=== PATIENT | female | born 1990 | race Caucasian/White ===

== ENCOUNTER 2021-12-01 03:42 | Emergency (ER) | payer MEDICAID, SELFPAY ==
[2021-12-01 03:51] VITALS: BP 158/102; PULSE 73; RESP 16; TEMP 36.6; O2SAT 99; BMI 51.7
--- NOTE | 2021-12-01 04:17 | USR_ITS ---
PROCEDURE INFORMATION: Exam: US Abdomen, Limited; Right Upper Quadrant Exam date and time: 12/01/2021 5:13 AM Age: 31 years old Clinical indication: Abdominal pain; Epigastric; Patient HX: PT was scheduled to have gb removed last December but the pain stopped and she felt better; Additional info: Ruq pain TECHNIQUE: Imaging protocol: Real time ultrasound of the abdomen with image documentation. Limited exam focused on the right upper quadrant. COMPARISON: US OB limited [id number] 08/15/2017 7:00 PM FINDINGS: Liver: Hepatomegaly, fatty liver. No liver masses are seen. Gallbladder: Cholelithiasis. Gallbladder wall is thickened at 4 mm. There is no pericholecystic fluid. Biliary ducts: Normal. No stones. No dilation. Pancreas: Visualized pancreas is unremarkable. Right kidney: There is extrarenal right renal pelvis. Otherwise the right kidney is unremarkable. Aorta: Normal. Inferior vena cava: Normal. US/US gall bladder [id number] IMPRESSION: 1. Cholelithiasis. Thickening of the gallbladder wall may indicate cholecystitis. 2. Hepatomegaly, fatty liver.
--- NOTE | 2021-12-01 04:17 | W.ED.ABDPA2 ---
HPI - Abdominal Pain General: Chief Complaint: Abdominal Pain Stated Complaint: Gall Bladder Pain Time Seen by Provider: 12/01/21 04:07 Source: patient History of Present Illness: 31-year-old female with a history of gallstones. She states that she had chili last night, and has been having epigastric and right upper quadrant pain since around 11 PM. Nausea with no vomiting. No fever. No history of belly surgery. No diarrhea. Pain radiates somewhat into her back. MD elicited complaint: abdominal pain Pertinent past history: none Onset (ago): hour(s) Pain Consistency: constant Location: Epigastric and RUQ Severity: moderate Quality: cramping and stabbing Radiation: none Migration to: no migration Exacerbating factors: eating (Possibly) Relieving factors: nothing Associated Symptoms: Reports nausea; Denies constipation, GI cramping, diarrhea, dysuria, fever(s), hematochezia and vomiting Related Data: Date of Last Menstrual Period: 11/30/21 Review of Systems Const: Denies: fever(s) Eyes: Denies: change in vision Card: Denies: chest pain or palpitations Resp: Denies: dyspnea, productive cough, non-productive cough or wheezing GI: Reports: nausea; Denies: vomiting, diarrhea, constipation, GI cramping or hematochezia : Denies: dysuria Skin/Breast: Denies: rash Neuro: Denies: headache(s), weakness in extremities, dizziness or confusion PFSH ED PFSH: Family History Denies family history of Diabetes CAD (coronary artery disease) Dementia Chronic kidney disease (CKD) Cancer Stroke Social History Smoking and tobacco status: never smoked Alcohol intake: current Alcohol intake frequency: holidays/special occasions only Lives independently: Yes Household members: children Female Reproductive History: Date of last menstrual period: 11/30/21 Physical Exam Const: COMMON NORMALS: no acute distress GENERAL APPEARANCE: cooperative; not ill appearing and not frail appearing HENMT: COMMON NORMALS: normocephalic, atraumatic, TM's normal bilaterally and Normal external nose present HEAD & SCALP: normocephalic and atraumatic FACE & SINUS: normal facial exam and face symmetric NOSE: Normal external nose present TYMPANIC MEMBRANE: TM's normal bilaterally MOUTH: Normal oral and palatal mucosa present Eye: COMMON NORMALS: Equal, round and reactive pupils present and EOMs intact bilaterally PUPIL: Yes Equal, round and reactive pupils present Neck/C-Spine: GENERAL: Yes trachea midline Chest: CHEST: Yes Symmetrical chest wall rise Resp: COMMON NORMALS: normal respiratory effort, No retractions, No use of accessory muscles and clear to auscultation bilaterally AUSCULTATION: clear to auscultation bilaterally Cardio: COMMON NORMALS: regular rate, regular rhythm, S1 normal heart sound present and S2 normal heart sound present RATE: regular rate RHYTHM: regular rhythm HEART SOUNDS: S1 normal heart sound present and S2 normal heart sound present GI: COMMON NORMALS: Normal to inspection, nondistended, normoactive bowel sounds present and Soft to palpation INSPECTION: Yes normal to inspection PALPATION: Yes Soft to palpation and Yes Tenderness to palpation present (GI) Details: RUQ : BLADDER/KIDNEY EXAM: Yes CVA tenderness on the right Back/Pelvis: GENERAL BACK: Yes CVA tenderness Extremity: COMMON NORMALS: no pedal edema Neuro: FRANCI COMA SCALE: document GCS findings Franci coma scale eye opening: Spontaneous Franci coma scale verbal response: Orientated [place] coma scale motor response: Obey commands [place] coma scale total score: 15 SENSORY EXAM: Yes extremities (intact) Psych: COMMON NORMALS: speech normal SPEECH: Yes normal speech Skin: COMMON NORMALS: no rashes or lesions noted GENERAL SKIN EXAM: no rashes or lesions noted Course Vital Signs: Vital signs: Vital Signs Temperature 97.8 F 12/01/21 03:51 Pulse Rate 77 12/01/21 08:11 Respiratory Rate 16 12/01/21 08:11 Blood Pressure 163/99 12/01/21 08:11 Pulse Oximetry 95 12/01/21 08:11 Oxygen Delivery Me thod 12/01/21 05:00 MDM - Abdominal Pain Medical Decision Making 31-year-old female with right upper quadrant pain. She is afebrile here. She has known gallstones. She is nontoxic in appearance. Her white blood cell count is 9. Her hemoglobin is 11.7. Her BMP is not remarkable. Her liver enzymes are not significantly elevated, her CRP is 3.7. She does however have multiple stones in her gallbladder with a mildly thickened wall. No pericholecystic fluid by ultrasound. Her common bile duct is not overly dilated. Given her normal lab work, will refer her to surgery as an outpatient. She has had these findings in the past, and likely has a more chronic cholecystitis. Lab Data : 12/01/21 04:25 12/01/21 04:25 Labs/Radiology: Radiology Impressions Gallbladder Ultrasound 12/01/21 04:17 IMPRESSION: 1. Cholelithiasis. Thickening of the gallbladder wall may indicate cholecystitis. 2. Hepatomegaly, fatty liver. Laboratory Results WBC 9.2 10^3/uL (4.0-10.0) 12/01/21 04:25 RBC 4.28 10^6/uL (4.1-5.3) 12/01/21 04:25 Hgb 11.7 g/dL (11.5-15.3) 12/01/21 04:25 Hct 36.4 % (37.0-47.0) L 12/01/21 04:25 MCV 85.0 fl (81-99) 12/01/21 04:25 MCH 27.3 pg (28.0-34.0) L 12/01/21 04:25 MCHC 32.1 g/dL (30.0-36.0) 12/01/21 04:25 RDW 13.3 % (12.1-15.1) 12/01/21 04:25 Plt Count 266 10^3/cmm (130-400) 12/01/21 04:25 MPV 10.5 fL (7.4-10.4) H 12/01/21 04:25 Neut % (Auto) 75.7 % 12/01/21 04:25 Lymph % (Auto) 18.2 % 12/01/21 04:25 [place] % (Auto) 4.7 % 12/01/21 04:25 Eos % (Auto) 0.7 % 12/01/21 04:25 Baso % (Auto) 0.3 % 12/01/21 04:25 Neut # (Auto) 6.98 10^3/uL (1.8-7.7) 12/01/21 04:25 Lymph # (Auto) 1.7 10^3/uL (0.8-4.8) 12/01/21 04:25 [place] # (Auto) 0.4 10^3/uL (0.2-0.9) 12/01/21 04:25 Eos # (Auto) 0.1 10^3/uL (0.0-0.8) 12/01/21 04:25 Baso # (Auto) 0.0 10^3/uL (0.0-0.1) 12/01/21 04:25 Nucleated RBC % (auto) 0 % 12/01/21 04:25 Nucleated RBCs # 0.0 /100WBC 12/01/21 04:25 Sodium 136 mmol/L (136-145) 12/01/21 04:25 Potassium 4.0 mmol/L (3.5-5.1) 12/01/21 04:25 Chloride 101 mmol/L (98-107) 12/01/21 04:25 Carbon Dioxide 24 mmol/L (22-29) 12/01/21 04:25 Anion Gap 15.0 (5-19) 12/01/21 04:25 BUN 7 mg/dL (6-20) 12/01/21 04:25 Creatinine 0.7 mg/dL (0.5-0.9) 12/01/21 04:25 GFR Calculation 98.3 mL/min (90-130) 12/01/21 04:25 Glucose 121 mg/dL (65-115) H 12/01/21 04:25 Calculated Osmolality 281 mOsm/kg (285-295) L 12/01/21 04:25 Lactate 1.1 mmol/L (0.5-2.2) 12/01/21 04:32 Calcium 9.0 mg/dL (8.5-10.5) 12/01/21 04:25 Total Bilirubin 0.2 mg/dL (0.15-1.2) 12/01/21 04:25 AST 16 U/L (0-32) 12/01/21 04:25 ALT 25 U/L (0-33) 12/01/21 04:25 Alkaline Phosphatase 91 U/L (35-105) 12/01/21 04:25 C-Reactive Protein 3.7 mg/L (0.0-4.9) 12/01/21 04:25 Total Protein 7.5 g/dL (6.6-8.7) 12/01/21 04:25 Albumin 4.1 g/dL (3.5-5.2) 12/01/21 04:25 Globulin 3.4 g/dL (1.3-4.6) 12/01/21 04:25 Lipase 17 U/L (13-60) 12/01/21 04:25 HCG, Qual Negative (Negative) 12/01/21 04:25 Urine Color Yellow (Yellow) 12/01/21 04:32 Urine Appearance Hazy (CLEAR) A 12/01/21 04:32 Urine pH 8 (5-7) H 12/01/21 04:32 Ur Specific [place] 1.010 (1.005-1.030) 12/01/21 04:32 Urine Protein Neg (Negative) 12/01/21 04:32 Urine Glucose (UA) Norm (Normal) 12/01/21 04:32 Urine Ketones Negative (Negative) 12/01/21 04:32 Urine Blood 3+ (Negative) H 12/01/21 04:32 Urine Nitrate Negative (Negative) 12/01/21 04:32 Urine Bilirubin Neg (Negative) 12/01/21 04:32 Prot Sulfosalicylic Acd Negative (Negative) 12/01/21 04:32 Urine Urobilinogen 1 mg/dL (Negative) H 12/01/21 04:32 Ur Leukocyte Esterase 1+ (Negative) H 12/01/21 04:32 Urine RBC Too numerous to cnt /hpf (0-2) H 12/01/21 04:32 Urine WBC 10-15 /hpf (0-5) H 12/01/21 04:32 Ur Squamous Epith Cells 10-15 /hpf (0-5) H 12/01/21 04:32 Amorphous Sediment Not Reportable 12/01/21 04:32 Urine Bacteria 2+ /hpf (NONE) H 12/01/21 04:32 Discharge Plan Discharge Patient Disposition: Home Clinical Impression: Biliary colic Condition: Stable Prescriptions: New Percocet 7.5-325 mg tablet 1 tab PO Q6H PRN (Reason: pain) Qty: 7 0RF ondansetron 4 mg film 4 mg PO DAILY PRN (Reason: nausea and vomiting) Qty: 10 0RF Discharge Orders: Discharge ED (Routine); Ordered 12/01/21 Ordered By: Tyler Winter Referrals: Dakota Clark MD [Physician] - 4-7 days Patient Instructions: Biliary Colic (ED), Opioid Safety, Pain Management Activity Restrictions/Additional Instructions: Follow a liquid diet for the next 24 hours, then advance as needed. Return for vomiting liquids or medications, increasing pain despite treatment, yellowing of the eyes, fever greater than 100, any other concerning symptoms. You should get a call next week regarding a referral to the surgery clinic for evaluation of your gallbladder. Coding Level of Care Code ED Technician Helper Instrument for Chg Fwd Exam Comprehensive
[2021-12-01 04:31] LABS: Basophils % 0.3 %; Eosinophils # 0.1 10^3/uL (0.0-0.8); Eosinophils % 0.7 %; Hematocrit 36.4 % (37.0-47.0); Hemoglobin 11.7 g/dL (11.5-15.3); Lymphocytes # 1.7 10^3/uL (0.8-4.8); Lymphocytes % 18.2 %; Mean Corpuscular HGB Conc 32.1 g/dL (30.0-36.0); Mean Corpuscular Hemoglobin 27.3 pg (28.0-34.0); Mean Platelet Volume 10.5 fL (7.4-10.4); Monocytes # 0.4 10^3/uL (0.2-0.9); Monocytes % 4.7 %; Neutrophils # 6.98 10^3/uL (1.8-7.7); Neutrophils % 75.7 %; Nucleated Red Blood Cells % 0 %; Platelet Count 266 10^3/cmm (130-400); Red Blood Count 4.28 10^6/uL (4.1-5.3); Red Cell Distribution Width 13.3 % (12.1-15.1); White Blood Count 9.2 10^3/uL (4.0-10.0)
[2021-12-01] MEDS: ondansetron 2 mg/ML SDV 2 mL 4 MG IVP (04:34)
[2021-12-01 04:35] VITALS: RESP 16
[2021-12-01] MEDS: morphine 4 mg/mL SDV 1 mL IVP (04:35)
[2021-12-01] MEDS: ketorolac 30 mg/mL INJ 15 MG IVP (04:38)
[2021-12-01 04:41] LABS: HCG, Serum Qual Negative (Negative)
[2021-12-01 04:53] LABS: Urine Appearance Hazy (CLEAR); Urine Color Yellow (Yellow); pH Urine 8 (5-7)
[2021-12-01 04:55] LABS: Bilirubin Urine Neg (Negative); Blood Urine 3+ (Negative); Glucose Urine UA Norm (Normal); Ketones Urine Negative (Negative); Nitrate Urine Negative (Negative); Protein Urine Neg (Negative); Urobilinogen Urine 1 mg/dL (Negative)
[2021-12-01 04:56] LABS: Add Urine Microscopic? YES; Leukocyte Esterase Urine 1+ (Negative)
[2021-12-01 04:57] LABS: Bacteria Urine 2+ /hpf; RBC Urine TOO NUMEROUS TO CNT /hpf (0-2)
[2021-12-01 04:58] LABS: Add Urine Culture? Yes
[2021-12-01 05:00] VITALS: PULSE 68; RESP 16; O2SAT 95
[2021-12-01 05:02] LABS: Alanine Aminotransferase 25 U/L (0-33); Albumin Level 4.1 g/dL (3.5-5.2); Alkaline Phosphatase 91 U/L (35-105); Aspartate Amino Transferase 16 U/L (0-32); Blood Urea Nitrogen 7 mg/dL (6-20); C Reactive Protein 3.7 mg/L (0.0-4.9); Carbon Dioxide 24 mmol/L (22-29); Chloride 101 mmol/L (98-107); Globulin 3.4 g/dL (1.3-4.6); Glomerular Filtration Rate 98.3 mL/min (90-130); Glucose 121 mg/dL (65-115); Lipase 17 U/L (13-60); Osmolality Calculated 281 mOsm/kg (285-295); Sodium 136 mmol/L (136-145); Total Bilirubin 0.2 mg/dL (0.15-1.2); Total Protein 7.5 g/dL (6.6-8.7)
[2021-12-01 05:03] LABS: Lactate (Lactic Acid level) 1.1 mmol/L (0.5-2.2)
[2021-12-01 05:06] LABS: Sulfosalicylic Acid Urine Negative (Negative)
[2021-12-01 06:00] VITALS: BP 153/102; PULSE 86; RESP 16; O2SAT 94
[2021-12-01 08:11] VITALS: BP 163/99; PULSE 77; RESP 16; O2SAT 95
--- NOTE | 2021-12-03 15:02 | DCPLANNER ---
Addendum entered by Bere Garay 01/03/22 06:06: Patient had a follow up appointment scheduled for 12.10.[address] Munoz at general surgery - patient did attend appointment. Original Note: grant manager had message to schedule a follow up appointment for patient with general surgery. grant manager sent patients information to the front office staff at general surgery. Patients information will be printed and reviewed. Clinic will call patient with appointment information.
== END 2021-12-01 08:13 | disposition home or self-care (01) ==
PROVIDERS: Emergency Provider Emergency Medicine
DX: K81.1 Chronic cholecystitis (principal)
CPT/HCPCS: 76705; 80053; 81001; 83605; 83690; 84703; 85025; 86140; 87086; 96374; 96375; 99285; J1885; J2270; J2405

== ENCOUNTER 2021-12-13 06:44 | Day surgery (SDC) | payer MEDICAID, SELFPAY ==
[2021-12-12 10:50] VITALS: BMI 59.1
[2021-12-13] VITALS (8 sets, daily range): BP systolic 117–199; BP diastolic 74–136; PULSE 83–106; RESP 13–19; TEMP 36.2–36.5; O2SAT 95–98
[2021-12-13 07:10] LABS: OR HCG Qualitative Urine Negative (Negative)
--- NOTE | 2021-12-13 07:16 | W.PM.OPSUD ---
Surgery/Procedure H&P Update DATE OF PROCEDURE: December 13, 2021 DATE H&P PERFORMED: 12/10/21 PREOP DIAGNOSIS: Symptomatic Cholelithiasis PLANNED PROCEDURE: Operation Date: 12/13/21 08:25 Proposed Procedures p Laparoscopic Cholecystectomy 14406,K80.20(Not Applicable) - Barrett Munoz DO
[2021-12-13] MEDS: sodium chloride 0.9% 1,000 ML 30 ML IV (07:22)
--- NOTE | 2021-12-13 07:33 | ANES.PREANE2 ---
Pre-Anesthetic Assessment Height/Weight: Height 1.75 m Weight 181.437 kg Temp Pulse Resp BP Pulse Ox O2 Del Method 97.4 F L 83 18 135/94 98 12/13/21 07:10 12/13/21 07:10 12/13/21 07:10 12/13/21 07:30 12/13/21 07:10 12/13/21 07:12 Preop Diagnosis: Symptomatic Cholelithiasis Operation Date: 12/13/21 08:25 Proposed Procedures p Laparoscopic Cholecystectomy 03509,K80.20(Not Applicable) - Barrett Munoz DO Familial anesthetic complications: none Was Beta Juancarlos taken within 24 hours: N/A Was Clonidine taken within 24 hours: N/A Last intake: Intake Last Liquid Date 12/12/21 Last Liquid Time 19:30 Last Solid Date 12/12/21 Last Solid Time 19:30 Social No alcohol and No tobacco Exam alert, oriented x 3, clear to auscultation bilaterally and regular rate & rhythm Airway Mallampati: Class III Dentition: full Metabolic Morbid Obesity Anesthetic Plan ASA status: 2 Anesthesia: General Risk of > 500 ml blood loss (7ml/kg in children): No Medications/Allergies Home Medications Medication Instructions Recorded Confirmed Last Taken Type ondansetron 4 mg oral soluble film 4 mg PO DAILY PRN nausea and 12/01/21 12/13/21 12/05/21 Rx vomiting #10 ea oxycodone-acetaminophen 7.5 mg-325 1 tab PO Q6H PRN pain #7 tabs 12/01/21 12/13/21 12/01/21 Rx mg tablet (Percocet) cetirizine 10 mg PO 1XD allergies 12/13/21 12/13/21 12/12/21 History Allergies Allergy/AdvReac Type Severity Reaction Status Date / Time No Known Allergies Allergy Verified 12/13/21 07:03 Current Medications Generic Name Dose Route Start Last Admin Trade Name Freq PRN Reason Stop Dose Admin Sodium Chloride 1,000 mls @ 30 mls/hr 12/13/21 07:00 12/13/21 07:22 Sodium Chloride 0.9% IV 12/14/21 06:59 30 mls/hr .Q24H ILAN Administration PFSH Anesthesia Surgical History History of tonsillectomy and adenoidectomy 2007 Family History Denies family history of Diabetes CAD (coronary artery disease) Dementia Chronic kidney disease (CKD) Cancer Stroke Social History Smoking and tobacco status: never smoked Alcohol intake: current Alcohol intake frequency: holidays/special occasions only Lives independently: Yes Household members: children Female Reproductive History Date of last menstrual period: 11/30/21 Data Anesthesia Cardiac Studies: No Data to Display
[2021-12-13] MEDS: ceFAZolin 3,000 MG in sodium chloride 0.9% (100 ml) 100 ML 200 MG IV (08:32)
--- NOTE | 2021-12-13 09:35 | P.OP_ITS ---
Operative Report Date of procedure: December 13, 2021 Pre-op diagnosis: Preop Diagnosis Symptomatic Cholelithiasis Post-op diagnosis: same Procedure done: Laparoscopic cholecystectomy Specimens removed/disposition: Gallbladder Surgeon: Barrett Munoz DO Anesthesia: General Estimated blood loss (mL): 5 Complications: None apparent Brief History: This is a very pleasant 31-year-old female with symptomatic cholelithiasis. Laparoscopic cholecystectomy was indicated. The risk and benefits of the procedure were explained and documented. Procedure: Patient was wheeled into the operative room and placed on the OR table in a supine position. Abdomen was inspected prepped and draped in usual sterile fashion. Time-out was performed and all present were in agreement. A 15 blade scalp was used to make a stab incision in the left upper quadrant and intra- abdominal insufflation was achieved using a Veress needle. After localizing the tissue incisions were made and a 5 millimeter trocar was placed into the umbilicus as well as 2 in the right upper quadrant. A 12 millimeter trocar was placed in the epigastrium. Gallbladder was grasped and elevated. The triangle of [place] was carefully dissected using blunt dissection and electrocautery until the triangle of [place] clearly identified. The cystic duct was clipped proximally and double clipped distally. The duct was then ligated proximally. The cystic artery was doubly clipped and ligated. The gallbladder was then removed from the liver bed using electrocautery. The gallbladder was removed from the abdomen using an Endo-Catch bag through the epigastric incision. The liver bed was inspected and no bleeding was seen. The abdomen was irrigated and suctioned. All ports removed. Skin was washed and dried. Incisions were clos ed with 3-0 and 4-O Vicryl in a subcuticular interrupted fashion. Skin glue was applied. Patient tolerated the procedure well.
--- NOTE | 2021-12-13 13:38 | ANE.PACU2 ---
Inpatient post-anesthesia follow up: Airway intact: Yes Vital signs: Temperature 97.2 F Pulse Rate 88 Respiratory Rate 18 Blood Pressure 136/96 Pulse Oximetry 95 Oxygen Delivery Me thod Room Air Oxygen Flow Rate Fraction of Inspir ed Oxygen Hydration adequate: Yes Nausea and vomiting: No Pain level: 1 Mental status: Baseline
== END 2021-12-13 10:46 | disposition home or self-care (01) ==
PROVIDERS: Visit Provider Surgery
PROC: 0FT44ZZ Resection of Gallbladder, Percutaneous Endoscopic Approach (ICD-10-PCS; CPT 47562; principal; 2021-12-13 08:15)
DX: K80.10 Calculus of gallbladder with chronic cholecystitis without obstruction (principal); E66.01 Morbid (severe) obesity due to excess calories; Z68.43 Body mass index [BMI] 50.0-59.9, adult
CPT/HCPCS: 47562; 81025; 84703; 88304; J0131; J0330; J0690; J1100; J1200; J2250; J2405; J2704; J3010; J3490; J7030